=== PATIENT | male | born 1990 | race African-American/Black ===

== ENCOUNTER 2019-12-13 13:03 | Emergency (ER) | payer OTHER ==
[2019-12-13 13:16] VITALS: BMI 28.5
--- NOTE | 2019-12-13 13:17 | PDOC ---
Rapid Medical Evaluation Time Seen by Provider: 12/13/19 13:12 Medical Evaluation: 12/13/19 13:12 I have performed a brief in-person evaluation of this patient. The patient presents with a chief complaint of:? palpitations at rest on and off x 1 week. Flew from [place] ~1 week ago and states sxs started after he returned to [place]. No CP or SOB. No leg pain/swelling. Tested for covid at [facility] last week w/ results pending Pertinent physical exam findings:well wilder and stable I have ordered the following:ekg/cxr/labs/covid The patient will proceed to the ED for further evaluation. Discharge Disposition - Diagnosis Palpitations - Referrals - Patient Instructions - Post Discharge Activity
--- NOTE | 2019-12-13 13:39 | PDOC ---
History of Present Illness - General Chief Complaint: Palpitations Stated Complaint: IRREGULAR HEART BEAT Time Seen by Provider: 12/13/19 13:12 History Source: Patient Exam Limitations: No Limitations - History of Present Illness Initial Comments: 12/13/19 13:38 Manjeet Lewis is a 29M without any PMH presenting with palpitations at rest. Patient says he was in [place] 2 weeks ago to visit family, 5 hour flight, cousin who went with him tested positive for covid-19, patient has been tested but does not have results yet, denies fever/SOB/cough. Denies history of blood clotting or FH. Patient reports last week has had variable length palpitations while at rest, t hroughout the day, no triggers. Exercises ~1 hour each day cardio and home workouts, no chest pain or palpitations while exercising, no SOB. Denies chest pain, abd pain, urinary sx, diarrhea, dizziness, weakness. No family history of heart disease. No thyroid problems, heat sensitivity or hair loss, no recent home stressors. 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 No cage unloader, PMD is video chat only. 3 shots of whiskey on weekends, non-smoker, no drugs. NKDA. No PSH. Past History - Medical History Allergies/Adverse Reactions: Allergies Allergy/AdvReac Type Severity Reaction Status Date / Time No Known Allergies Allergy Verified 12/13/19 13:12 COPD: No - Immunization History Immunization Up to Date: Yes - Psycho-Social/Smoking History Smoking History: Never smoked - Substance Abuse Hx (Audit-C & DAST Scrn) How often the patient has a drink containing alcohol: Never Score: In Men: 4 or > Positive; In Women: 3 or > Positive: 0 Screen Result (Pos requires Nsg. Audit-10AR): Negative In the last yr the pt used illegal drug/Rx for NonMed reason: No Score: Yes response is considered Positive: 0 Screen Result (Positive result requires Nsg. DAST-10): Negative Review of Systems - Review of Systems Able to Perform ROS?: Yes Constitutional: No: Symptoms Reported HEENTM: No: Symptoms Reported Respiratory: No: Symptoms reported Cardiac (ROS): Yes: Irregular Heart Rate, Palpitations. No: Edema, Lightheadedness, Syncope, Chest Tightness ABD/GI: No: Constipated, Diarrhea, Nausea, Poor Appetite, Poor Fluid Intake, Vomiting : No: Symptoms Reported Musculoskeletal: No: Symptoms Reported Integumentary: No: Symptoms Reported Neurological: No: Symptoms reported Endocrine: No: Symptoms Reported Hematologic/Lymphatic: No: Symptoms Reported All Other Systems: Reviewed and Negative *Physical Exam - Vital Signs Last Vital Signs Temp Pulse Resp BP Pulse Ox 98.2 F 50 L 16 127/78 100 12/13/19 15:37 12/13/19 15:45 12/13/19 15:45 12/13/19 15:45 12/13/19 15:45 - Physical Exam General Appearance: Yes: Nourished, Appropriately Dressed, Other (well- appearing, in good spirits). No: Apparent Distress HEENT: positive: EOMI, HEAVENLY, Normal ENT Inspection, Normal Voice, Symmetrical, Pharynx Normal, Hearing Grossly Normal, Other (has breakthrough molars through gums). negative: Scleral Icterus (R), Scleral Icterus (L) Neck: positive: Trachea midline, Normal Thyroid, Supple. negative: Tender, Rigid, Lymphadenopathy (R), Lymphadenopathy (L), Tender lateral, Tender midline Respiratory/Chest: positive: Lungs Clear, Normal Breath Sounds, Respiratory Distress. negative: Chest Tender, Accessory Muscle Use, Crackles, Rales, Rh onchi, Stridor, Wheezing Cardiovascular: positive: Regular Rhythm, Regular Rate Gastrointestinal/Abdominal: positive: Normal Bowel Sounds, Flat, Soft. negative: Tender, Organomegaly, Pulsatile Mass, Guarding, Rebound Musculoskeletal: positive: Normal Inspection, Decreased Range of Motion. negative: CVA Tenderness Extremity: positive: Normal Capillary Refill, Normal Inspection, Normal Range of Motion, Pelvis Stable. negative: Tender, Swelling, Calf Tenderness, Erythema Integumentary: positive: Normal Color, Dry, Warm. negative: Diaphoresis Neurologic: positive: Fully Oriented, Alert, Normal Mood/Affect, Normal Response ED Treatment Course - LABORATORY CBC & Chemistry Diagram: 12/13/19 13:30 12/13/19 13:30 - ADDITIONAL ORDERS Additional order review: Laboratory Results 12/13/19 12/13/19 13:30 13:30 D-Dimer 460 Sodium 140 Potassium 4.4 Chloride 106 Carbon Dioxide 31 Anion Gap 3 L BUN 14.5 Creatinine 1.2 Est GFR (CKD-EPI)AfAm 93.48 Est GFR (CKD-EPI)NonAf 80.66 Random Glucose 88 Calcium 9.4 Total Bilirubin 0.7 AST 19 ALT 22 Alkaline Phosphatase 59 Creatine Kinase 188 Creatine Kinase Index No Result Required. CK-MB (CK-2) < 1.0 Troponin I < 0.02 Total Protein 7.9 Albumin 4.0 TSH 1.35 12/13/19 13:30 RBC 5.27 MCV 85.3 MCHC 32.6 RDW 13.3 MPV 8.3 Neutrophils % 48.3 Lymphocytes % 38.4 Monocytes % 11.3 H Eosinophils % 1.4 Basophils % 0.6 - RADIOLOGY Radiology Studies Ordered: Category Date Time Status CHEST PA & LAT [RAD] Stat Radiology 12/13/19 13:32 Completed Medical Decision Making - Medical Decision Making 12/13/19 14:47 Patient has no PMH, no heart problems, no thyroid problems, probably covid-19+ with known exposure but no symptoms, here for palpitations at rest. No concerning risk factors, no palpitations in ED or in the last 3 hours, no FH, low suspicion of PE given no hypoxia/bradycardia/no pleuritic chest pain, PERC negative. Evaluating for cardiac/thyroid pathology via: CBC/CMP/CP/TSH/ECG/CXR. Labsnotable for: - CMP WNL - trop negative - CBC WNL - TSH WNL ECG shows sinus bradycardia with HR 50, Qtc 368, evidence of benign early repol in V4-V5, no other BALJEET/D or TWI. If CXR negative for pathology, eligible for discharge home with PMD/cardoilogy f/u for Holter/Zio placement. 12/13/19 15:35 Patient found to have several one-off PVCs on outpatient services director that correlate to symptoms, never multiple in a row. CXR appears normal with no acute pathology. Stable for discharge home with cardiology f/u. Discharge - Discharge Information Problems reviewed: Yes Clinical Impression/Diagnosis: Palpitations, Symptomatic PVCs Condition: Good Disposition: HOME - Follow up/Referral Referrals: Andrea Gastelum MD [Primary Care Provider] - Demi Sánchez MD [Staff Physician] - Jayme Figueroa MD [Staff Physician] - Alejandro Pedraza MD [Staff Physician] - Kayden Dailey MD [Staff Physician] - - Patient Discharge Instructions Patient Printed Discharge Instructions: DI for Palpitations Additional Instructions: Today you were evaluated for palpitations. Your blood works, and X-ray are all normal. Your ECG has a finding called early repolarization, and you have benign extra heart beats called PVCs. Your palpitations are concerning, but your life is not being immediately threatened at this time. You need to see a cage unloader for long-term follow-up of your symptoms, and a referral has been given. You probably have covid-19 given your exposure, and you should quarantine at home for 14 days and minimize your exposure to others. If you experience worsening chest pain, palpitations, fever, cough, weakness, or any other new or concerning symptoms, please return to the emergency room. - Post Discharge Activity Vital Signs - Vital Signs Temperature: 98.2 F Temperature source: Oral
[2019-12-13 13:52] LABS: BASO % 0.6 % (0-2.0); EOS % 1.4 % (0-4.5); HEMATOCRIT 44.9 % (35.4-49); HEMOGLOBIN 14.6 GM/dL (11.7-16.9); LYMPH % 38.4 % (8-40); MCH 27.8 pg (25.7-33.7); MCHC 32.6 g/dl (32.0-35.9); MEAN CELL VOLUME 85.3 fl (80-96); MEAN PLT VOLUME 8.3 fl (7.5-11.1); MONO % 11.3 % (3.8-10.2); NEUT % 48.3 % (42.8-82.8); PLATELET COUNT 250 K/MM3 (134-434); RBC 5.27 M/mm3 (4.00-5.60); RDW 13.3 % (11.9-15.9)
--- NOTE | 2019-12-13 14:13 | EKG ---
Test Reason : Blood Pressure : / mmHG Vent. Rate : 050 BPM Atrial Rate : 050 BPM P-R Int : 204 ms QRS Dur : 080 ms QT Int : 404 ms P-R-T Axes : 037 059 031 degrees QTc Int : 368 ms SINUS BRADYCARDIA POSSIBLE LEFT ATRIAL ENLARGEMENT EARLY REPOLARIZATION BORDERLINE ECG NO PREVIOUS ECGS AVAILABLE Confirmed by Srini Mayers ([id number]) on 12/13/2019 2:13:35 PM Referred By: Confirmed By:Srini Mayers
[2019-12-13 14:23] LABS: ALK PHOS 59 U/L (45-117); ANION GAP 3 MMOL/L (8-16); BILIRUBIN,TOTAL 0.7 mg/dL (0.2-1); BLOOD UREA NITROGEN 14.5 mg/dL (7-18); CALCIUM 9.4 mg/dL (8.5-10.1); CHLORIDE 106 mmol/L (98-107); CO2 31 mmol/L (21-32); CREATININE 1.2 mg/dL (0.55-1.3); POTASSIUM 4.4 mmol/L (3.5-5.1); SGOT/AST 19 U/L (15-37); SGPT/ALT 22 U/L (13-61); SODIUM 140 mmol/L (136-145); TOT PROT 7.9 g/dl (6.4-8.2)
[2019-12-13 14:43] LABS: GLUCOSE,RANDOM 88 mg/dL (74-106)
[2019-12-13 15:05] VITALS: TEMP 98.2
--- NOTE | 2019-12-13 15:44 | PDOC ---
Attending Attestation - Resident Resident Name: TanyacheriNahun - ED Attending Attestation I have performed the following: I have examined & evaluated the patient, The case was reviewed & discussed with the resident, I agree w/resident's findings & plan - HPI HPI: 12/13/19 15:40 Healthy 29-year-old male with no significant past medical history presents with intermittent palpitations over the last 7 to 10 days. Patient recently returned from a trip to [place] about 8 days ago, has been feeling well but over the last few days has had relatively frequent palpitations described as a fleeting heart palpitation lasting 1 second and then resolves. Nonexertional, actually does not feel them when he is exercising. He is very active and athletic, and has no limitations due to chest pain or difficulty breathing. Denies any DVT symptoms. When prompted, does remember having occasional palpitations in the past, self- limited and never evaluated by cardiology. He does not drink caffeine, he does not take any stimulants, he denies any drug use. He did drink some alcohol when he was visiting family in [place] 8 days ago, but none this weekend. - Physicial Exam PE: 12/13/19 15:42 Vital signs stable, afebrile Pleasant and well-appearing athletic gentleman seated comfortably in stretcher Heart is regular with occasional premature beats corresponding to PVCs on monitor, and exactly correlating with patient's symptomatic palpitation Lungs are clear Abdomen benign No edema or calf tenderness - Medical Decision Making 12/13/19 15:43 Healthy 29-year-old male with symptomatic PVCs, otherwise hemodynamically stable and without other red flags for acute cardiac or pulmonary events. Labs are within normal limits, including d-dimer, TSH, and troponin EKG is sinus bradycardia with early re-pole abnormality, no PVCs captured on EKG, however clear on monitor Chest x-ray pending If above is within normal limits, will discharge with cardiology follow-up, understands return criteria. Heart Score/ECG Review #1 ECG reviewed & interpreted by me at: 13:25 General ECG Interpretation: Sinus Rhythm, Normal Rate (50), Normal Intervals (qtc 368, benign early repolarization abnormality), No acute ischemic changes Discharge - Discharge Information Problems reviewed: Yes Clinical Impression/Diagnosis: Palpitations, Symptomatic PVCs Condition: Good Disposition: HOME - Follow up/Referral Referrals: Andrea Gastelum MD [Primary Care Provider] - Demi Sánchez MD [Staff Physician] - Jayme Figueroa MD [Staff Physician] - Alejandro Pedraza MD [Staff Physician] - Kayden Dailey MD [Staff Physician] - - Patient Discharge Instructions Patient Printed Discharge Instructions: DI for Palpitations Additional Instructions: Today you were evaluated for palpitations. Your blood works, and X-ray are all normal. Your ECG has a finding called early repolarization, and you have benign extra heart beats called PVCs. Your palpitations are concerning, but your life is not being immediately threatened at this time. You need to see a torch straightener for long-term follow-up of your symptoms, and a referral has been given. You probably have covid-19 given your exposure, and you should quarantine at home for 14 days and minimize your exposure to others. If you experience worsening chest pain, palpitations, fever, cough, weakness, or any other new or concerning symptoms, please return to the emergency room. - Post Discharge Activity
[2019-12-13 15:46] VITALS: BP 127/78; PULSE 50
== END 2019-12-13 16:45 | disposition home or self-care (01) ==
LOC: JER 13:03
DX: R00.2 Palpitations (principal); I49.3 Ventricular premature depolarization
CPT/HCPCS: 36415; 71046-TC-FY; 80053; 82550; 82553; 84443; 84484; 85025; 85379; 93005; 93010; 99285-25; U0003